=== PATIENT | female | born 1980 | race American Indian/Alaskan Native ===

== ENCOUNTER 2018-08-16 13:14 | Emergency (ER) | payer MEDICARE, MEDICAID ==
[2018-08-16 14:42] VITALS: BP 111/66
[2018-08-16] MEDS ORDERED: MOTRIN PO ONE (15:05)
--- NOTE | 2018-08-16 15:08 | Emergency Department Report ---
ED Extremity Problem HPI - General Chief complaint: Extremity Problem,Nontraumatic Stated complaint: TOE INJURY Time Seen by Provider: 08/16/18 15:00 Source: patient Mode of arrival: Ambulatory Limitations: No Limitations - History of Present Illness Initial comments: Pt reports hitting foot on something last night and now has pain. MD Complaint: extremity pain -: Gradual Location: left, lower extremity History of Same: No -: Yes arthralgia Radiation: none Severity scale (0 -10): 5 Quality: aching Consistency: constant Improves with: nothing Worsens with: weight bearing Associated Symptoms: denies other symptoms - Related Data Previous Rx's Medication Instructions Recorded Last Taken Type Ibuprofen 800 mg PO Q8HR #15 tablet 08/16/18 Unknown Rx Allergies Allergy/AdvReac Type Severity Reaction Status Date / Time No Known Allergies Allergy Verified 08/16/18 14:36 ED Review of Systems ROS: Stated complaint: TOE INJURY Other details as noted in HPI Comment: All other systems reviewed and negative Musculoskeletal: as per HPI ED Past Medical Hx - Past Medical History Previous Medical History?: Yes Additional medical history: Multiple sclerosis - Surgical History Past Surgical History?: No - Social History Smoking Status: Never Smoker Substance Use Type: None - Medications Home Medications: Home Medications Medication Instructions Recorded Confirmed Last Taken Type Ibuprofen 800 mg PO Q8HR #15 tablet 08/16/18 Unknown Rx ED Physical Exam - General Limitations: No Limitations General appearance: alert, in no apparent distress - Head Head exam: Present: atraumatic, normocephalic - Eye Eye exam: Present: normal appearance - ENT ENT exam: Present: mucous membranes moist - Neck Neck exam: Present: normal inspection - Respiratory Respiratory exam: Present: normal lung sounds bilaterally. Absent: respiratory distress - Cardiovascular Cardiovascular Exam: Present: regular rate, normal rhythm. Absent: systolic murmur, diastolic murmur, rubs, gallop - GI/Abdominal GI/Abdominal exam: Present: soft, normal bowel sounds - Extremities Exam Extremities exam: Present: normal inspection, other (TTP to 4th and 5th metatarsals on L foot. CMS intact. ) - Back Exam Back exam: Present: normal inspection - Neurological Exam Neurological exam: Present: alert, oriented X3 - Psychiatric Psychiatric exam: Present: normal affect, normal mood - Skin Skin exam: Present: warm, dry, intact, normal color. Absent: rash ED Course Vital Signs 08/16/18 14:36 Temperature 98.4 F Pulse Rate 77 Respiratory 16 Rate Blood Pressure 111/66 O2 Sat by Pulse 98 Oximetry ED Medical Decision Making - Radiology Data Radiology results: image reviewed interpreted by me: negative - Medical Decision Making Pt presented with pain in L foot after hitting it on an object. Imaging reviewed by myself and appears negative. F/U PCP. - Differential Diagnosis contusion, fracture Critical care attestation.: If time is entered above; I have spent that time in minutes in the direct care of this critically ill patient, excluding procedure time. ED Disposition Clinical Impression: Foot contusion Qualifiers: Encounter type: initial encounter Laterality: left Qualified Code(s): S90.32XA - Contusion of left foot, initial encounter Disposition: - TO HOME OR SELFCARE Is pt being admited?: No Condition: Good Instructions: Foot Contusion (ED) Prescriptions: Ibuprofen 800 mg PO Q8HR #15 tablet Referrals: PRIMARY CARE, [Primary Care Provider] - 3-5 Days Time of Disposition: 16:55
--- NOTE | 2018-08-17 10:27 | XRay Report ---
FINAL REPORT EXAM: XRAY FOOT 2 VIEWS LEFT HISTORY: 08/16/2018 4:40 PM Ana HeatherLeft foot injury. Pain is at 4th and 5th toe on left foot. TECHNIQUE: Frontal and lateral views of left foot. PRIORS: None. FINDINGS: No apparent fracture or dislocation. Joint spaces maintained. Soft tissues grossly unremarkable. IMPRESSION: 1. No acute osseous abnormality.
== END 2018-08-16 17:01 | disposition home or self-care (01) ==
LOC: ED 13:14
DX: S90.32XA Contusion of left foot, initial encounter (principal); W22.8XXA Striking against or struck by other objects, initial encounter; Y93.89 Activity, other specified; Y92.89 Other specified places as the place of occurrence of the external cause; Y99.8 Other external cause status
CPT/HCPCS: 99283

== ENCOUNTER 2018-12-23 13:45 | Emergency (ER) | payer MEDICARE, MEDICAID ==
--- NOTE | 2018-12-23 13:54 | Emergency Department Report ---
Chief Complaint: Nausea/Vomiting/Diarrhea Stated Complaint: POSS FOOD POSION - HPI History of Present Illness: NO N/V/D ALSO CO HEADACHE POOR APPETITE DID NOT EAT SINCE TUES NO BM SINCE SUN [facility] MS AMBULATORY RX MONTHLY MS MED MSE COMPLETED NO LIFE THREAT MSE screening note: Focused history and physical exam performed. Due to findings the following was ordered: ED Disposition for MSE Condition: Stable
[2018-12-23 15:28] LABS: Alanine Aminotransferase 15 units/L (7-56); Albumin 4.5 g/dL (3.9-5); BUN/Creatinine Ratio 13; Blood Urea Nitrogen 8 mg/dL (7-17); Calcium 9.9 mg/dL (8.4-10.2); Hemolysis Index 5
[2018-12-23 15:35] LABS: Hematocrit 37.6 % (30.3-42.9); Mean Corpuscular HGB Conc 32 % (30-34); Mean Corpuscular Volume 75 fl (79-97); Platelet Count 229 K/mm3 (140-440); Red Blood Count 5.01 M/mm3 (3.65-5.03); Red Cell Distribution Width 16.5 % (13.2-15.2)
--- NOTE | 2018-12-23 16:28 | Emergency Department Report ---
Vomiting/Diarrhea - HPI Chief Complaint: Nausea/Vomiting/Diarrhea Stated Complaint: POSS FOOD POSION Time Seen by Provider: 12/23/18 13:54 Duration: 3 Days Severity: moderate Nausea/Vomiting Severity: Moderate Diarrhea Severity: None Pain Location: Other (headaches) Pain Severity: Severe (10/10 achy frontally) Symptoms: No Watery Diarrhea, No Bloody diarrhea, No Fever, No Able to Tolerate Fluids, No Recent Unusual Foods, No Recent Untreated Water, No Recent use of Antibiotics, No Family w/ Similar Symptoms, No Contacts w/ Similar Symptoms, No Rash, No Hematuria, No Recent URI Symptoms Other History: This is a 38-year-old female came in today with history of nausea and headache and no food since then 3 days ago. She says she has a headache located frontal that is 9/10 and achy. Patient reports that she is having nausea and she is not able to eat any food for 3 days. She says she has MS and she went to the clinic to get her shot which she gets monthly and she says that she got delayed so this that she has to wait until next month. So she says she thinks that because of that this when she is having the nausea and headache. She goes to MS specialist [facility]. No medication taken for pain. She is able to tolerate some fluids. Denies any abdominal or back pain. Denies any urinary burning, frequency or urgency. Denies any fever or chills ED Review of Systems Constitutional: denies: chills, fever Eyes: denies: eye pain, vision change ENT: denies: ear pain, throat pain, congestion Respiratory: denies: cough, shortness of breath, SOB with exertion, SOB at rest, stridor, wheezing Cardiovascular: paroxysmal nocturnal dyspnea (associates sometimes is better if she does not know especially things like that that is). denies: chest pain, palpitations, dyspnea on exertion, edema, syncope Gastrointestinal: denies: abdominal pain ( chronic it is not), nausea, vomiting, constipation ( likely right away), hematemesis (medications I things of his symptoms stress still some of them), hematochezia Musculoskeletal: denies: back pain, joint swelling, arthralgia, myalgia Skin: denies: rash Neurological: headache, abnormal gait. denies: numbness, paresthesias, confusion, vertigo ED Past Medical Hx - Past Medical History Previous Medical History?: Yes Additional medical history: Multiple sclerosis - Surgical History Past Surgical History?: Yes - Family History Family history: hypertension - Social History Smoking Status: Never Smoker Substance Use Type: None - Medications Home Medications: Home Medications Medication Instructions Recorded Confirmed Last Taken Type Ibuprofen 800 mg PO Q8HR #15 tablet 08/16/18 Unknown Rx Dicyclomine [Bentyl] 20 mg PO Q8H 3 Days #9 tablet 12/23/18 Unknown Rx Promethazine [Phenergan TAB] 25 mg PO Q6HR PRN #12 tab 12/23/18 Unknown Rx cephALEXin [Keflex] 500 mg PO Q12HR 7 Days #14 cap 12/23/18 Unknown Rx methylPREDNISolone [Medrol] 4 mg PO QAM 6 Days #1 tab.ds.pk 12/23/18 Unknown Rx Vomiting Diarrhea Exam - Exam General: Vital signs noted. No distress. Alert and acting appropriately. this is a 38-year-old female well-nourished well-developed in no acute distress I mean makes sense that he take the patient that started in room. HEENT: No Pharyngeal Erythema, No Pharyngeal Exudates, No Moist Mucous Membranes, No Rhinorrhea, No Conjuctival Injection, No Frontal Tenderness, No Maxillary Tenderness Neck: No Adenopathy, No Rigidity (no C-spine tenderness and full range of motion) Lungs: Yes Clear Lung Sounds, Yes Good Air Exchange, No Wheezes, No Stridor, No Cough, No Nasal Flaring, No Retractions, No Use of Accessory Muscles Heart exam: Regular: Yes, Murmur: No, Tachycardia: No Abdomen: Tenderness: No (nontender the palpation in all quadrants.), Peritoneal Signs: No, Distention: No, Hyperactive Bowel sounds: No Skin exam: Rash: No, Edema: Yes, Normal turgor: Yes (clean dry and intact and no rash or) Neurologic: Alert and oriented 3, gait is abnormal due to MS and patient is slow in movement. Which is chronic Musculoskeletal: Unremarkable. No cce. + 2 pulses in all extremities, no neurovascular compromise ED Course Vital Signs 12/23/18 13:52 Temperature 97.8 F Pulse Rate 78 Respiratory 16 Rate Blood Pressure 121/73 O2 Sat by Pulse 100 Oximetry - Reevaluation(s) Reevaluation #1: 12/23/18 18:05 Patient given 1 L of normal saline, 4 mg of Zofran IV. She received lidocaine 15 mL by mouth and Bentyl 10 mL by mouth. 12/23/18 21:06 l Reevaluation #2: 12/23/18 21:07 Patient has urinary tract infection and will start on Keflex and also give her medication for pain. She says she is feeling better. Reevaluation #3: 12/23/18 21:18 Patient given Solu-Medrol 125 mg IV, Zofran 4 mg IV and morphine 4 mg IV. She is stable and vital signs stable and she is tolerating oral fluids well and says she is feeling much better. ED Medical Decision Making - Lab Data Result diagrams: 12/23/18 14:40 12/23/18 14:40 Lab Results 12/23/18 12/23/18 12/23/18 Range/Units 14:40 14:40 20:10 WBC 7.2 (4.5-11.0) K/mm3 RBC 5.01 (3.65-5.03) M/mm3 Hgb 12.0 (10.1-14.3) gm/dl Hct 37.6 (30.3-42.9) % MCV 75 L (79-97) fl MCH 24 L (28-32) pg MCHC 32 (30-34) % RDW 16.5 H (13.2-15.2) % Plt Count 229 (140-440) K/mm3 Sodium 141 (137-145) mmol/L Potassium 4.5 (3.6-5.0) mmol/L Chloride 103.9 (98-107) mmol/L Carbon Dioxide 21 L (22-30) mmol/L Anion Gap 21 mmol/L BUN 8 (7-17) mg/dL Creatinine 0.6 L (0.7-1.2) mg/dL Estimated GFR > 60 ml/min BUN/Creatinine Ratio 13 % Glucose 104 H (65-100) mg/dL Calcium 9.9 (8.4-10.2) mg/dL Total Bilirubin 0.30 (0.1-1.2) mg/dL AST 16 (5-40) units/L ALT 15 (7-56) units/L Alkaline Phosphatase 116 (35-129) units/L Total Protein 8.3 H (6.3-8.2) g/dL Albumin 4.5 (3.9-5) g/dL Albumin/Globulin Ratio 1.2 % Urine Color [place] (Yellow) Urine Turbidity Cloudy (Clear) Urine pH 5.0 (5.0-7.0) Ur Specific [place] 1.009 (1.003-1.030) Urine Protein <15 mg/dl (Negative) mg/dL Urine Glucose (UA) Neg (Negative) mg/dL Urine Ketones Neg (Negative) mg/dL Urine Blood Sm (Negative) Urine Nitrite Neg (Negative) Ur Reducing Substances Not Reportable Urine Bilirubin Neg (Negative) Urine Ictotest Not Reportable Urine Urobilinogen 2.0 (<2.0) mg/dL Ur Leukocyte Esterase Lg (Negative) Urine WBC (Auto) 53.0 H (0.0-6.0) /HPF Urine RBC (Auto) 116.0 (0.0-6.0) /HPF U Epithel Cells (Auto) 16.0 H (0-13.0) /HPF Amorphous Crystals Few Urine Mucus Few /HPF Urine HCG, Qual Negative (Negative) - Medical Decision Making This is a 38-year-old female here for nausea 3 days with headache. She says she has been eating in 3 days and she had Mr. MS medication from neurology specialists for this month and she thinks this this facility she did not take her MS medication.. She was given Bentyl, lidocaine by mouth, 1 L of normal saline and 8 mg of Zofran emergency room. She says she felt better and she is able to tolerate fluids but she was still having slight headache. I gave her 4 mg of morphine IV, Zofran 4 mg IV and Solu-Medrol 125 mg IV. Labs: Patient had CBC and CMP which are stable with minor abnormality. She had urinalysis although contaminated, she had positive white blood cells and leukocyte esterase and reports cloudy. She also has small amount of blood in her urine. Culture not sent due to contamination. test is negative Assessment/plan Urinary tract infection with hematuria-will sent home on Keflex that she receive her first dose today. Nausea vomiting -better after Zofran IV and was sent home and Phenergan. She received 1 L of normal saline and able to tolerate fluids in the emergency room Headache-better or after morphine and Solu-Medrol Patient is stable and I discuss her urinalysis and other laboratory results with her along with diagnosis and treatment plan and she voiced understanding and. Discharge home with prescription for Medrol Dosepak, Keflex. she is to follow up with her primary care physician in 4 days which she does have 1 or return to the emergency room if her condition worsens. I also discussed with her that she needs to call her M is Dr. Maki Vega she was then emergency room and she was understanding and. Critical care attestation.: If time is entered above; I have spent that time in minutes in the direct care of this critically ill patient, excluding procedure time. ED Disposition Clinical Impression: Nausea alone, Acute cystitis with hematuria Headache Qualifiers: Headache type: unspecified Headache chronicity pattern: acute headache Intractability: not intractable Qualified Code(s): R51 - Headache Disposition: DC- TO HOME OR SELFCARE Is pt being admited?: No Does the pt Need Aspirin: No Condition: Stable Instructions: Acute Nausea and Vomiting (ED), Acute Headache (ED), Urinary Tract Infection in Women (ED) Additional Instructions: Please follow-up with your primary care physician and your neurologist/MS specialist in 4 days. Take medication as prescribed Phenergan Makes she did not sleep he said do not take when driving or operating heavy machinery Please make sure they increased her fluid intake TO 2- 3 L of water and/or Gatorade daily. Prescriptions: cephALEXin [Keflex] 500 mg PO Q12HR 7 Days #14 cap Dicyclomine [Bentyl] 20 mg PO Q8H 3 Days #9 tablet methylPREDNISolone [Medrol] 4 mg PO QAM 6 Days #1 tab.ds.pk Promethazine [Phenergan TAB] 25 mg PO Q6HR PRN #12 tab PRN Reason: Nausea Referrals: your ,MS specialist [Other] - 12/27/18 your ,primary care doctor [Other] - 12/27/18 Forms: Work/School Release Form(ED)
[2018-12-23] MEDS ORDERED: BENTYL PO ONE (16:29)
[2018-12-23] MEDS ORDERED: LIDOCAINE VISCOUS 2% PO ONE (16:29)
[2018-12-23] MEDS ORDERED: NACL 0.9% 1000 ML 1,000 ML IV ONE (16:29)
[2018-12-23] MEDS ORDERED: ZOFRAN IV ONE (16:29)
[2018-12-23 18:25] VITALS: BP 116/73
[2018-12-23 20:21] LABS: HCG Qualitative,Urine Negative (Negative)
[2018-12-23 20:25] LABS: Amorphous Crystals,Urine Few; Bilirubin,Urine NEG (Negative); Blood,Urine SM (Negative); Color,Urine Amber (Yellow); Mucus,Urine FEW /HPF; Protein,Urine <15 mg/dL mg/dL (Negative)
[2018-12-23] MEDS ORDERED: SOLU-Medrol IV ONE (21:08)
[2018-12-23] MEDS ORDERED: MORPHINE IV ONE (21:08)
[2018-12-23] MEDS ORDERED: ZOFRAN IM ONE (21:08)
== END 2018-12-23 21:59 | disposition home or self-care (01) ==
LOC: ED 13:45
DX: R11.2 Nausea with vomiting, unspecified (principal); R51 Headache; N30.01 Acute cystitis with hematuria
CPT/HCPCS: 36415; 80053; 81001; 81025; 85027; 96372; 96374; 96375; 99283; J2270; J2405; J2930; J7030; 96361